=== PATIENT | female | born 1930 | race African-American/Black ===

== ENCOUNTER 2017-07-25 12:42 | Emergency (ER) | payer OTHER, MEDICARE ==
[~2017-07-25] VITALS: Ht 157.5 cm; Wt 72.0 kg
[~2017-07-25 12:42] MED LIST: ADVA250A INH; ALBU1AER INH; COLY4000S PO; GLUCTAB PO; HYDR-2768 PO; HYDR-3533 PO; LEVE250 PO; MAGN1SOL2 PO; MONT10TA2 PO; NIFE30TA2 PO; SYNT88TA PO
[2017-07-25] MEDS ORDERED: IOHEXOL 350 MG/ML 10 ML VIAL (for RAD DIAG) IVCONTRAST ONE (12:43)
[2017-07-25 12:49] VITALS: BP 153/70; PULSE 97; RESP 18; TEMP 98.7; O2SAT 98
[2017-07-25] MEDS ORDERED: SODIUM CHLORIDE 0.9% FLUSH 10 ML FLUSH IVF PRN (13:00)
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
[2017-07-25] MEDS ORDERED: [UNRECOGNIZED DRUG - CODE] PO (13:04)
[2017-07-25] MEDS ORDERED: HYDR25TA5 PO (13:04)
[2017-07-25] MEDS ORDERED: METF500T PO (13:04)
[2017-07-25] MEDS ORDERED: SYNT88TA PO (13:04)
[2017-07-25] MEDS ORDERED: ADVA250A INH (13:04)
[2017-07-25] MEDS ORDERED: NIFE1TAB85 PO (13:04)
[2017-07-25 13:05] VITALS: RESP 16; O2SAT 96
[2017-07-25 13:27] LABS: AUTOMATED NEUTROPHIL # 4.9 TH/MM3 (1.8-7.7); BASOPHIL # 0.1 TH/MM3 (0-0.2); EOSINOPHIL # 0.3 TH/MM3 (0-0.4); EOSINOPHIL % 3.3 % (0.0-4.0); HEMATOCRIT 34.3 % (35.0-46.0); HEMOGLOBIN 11.5 GM/DL (11.6-15.3); LYMPH % 29.6 % (9.0-44.0); LYMPHOCYTE # 2.5 TH/MM3 (1.0-4.8); MEAN CORPUSCULAR HEMOGLOBIN 28.6 PG (27.0-34.0); MEAN CORPUSCULAR HGB CONC 33.6 % (32.0-36.0); MEAN PLATELET VOLUME 7.7 FL (7.0-11.0); MONO % 7.3 % (0.0-8.0); MONOCYTE # 0.6 TH/MM3 (0-0.9); NEUT % 58.8 % (16.0-70.0); PLATELET COUNT 234 TH/MM3 (150-450); RED BLOOD COUNT 4.04 MIL/MM3 (4.00-5.30); RED CELL DISTRIBUTION WIDTH 14.5 % (11.6-17.2); WHITE BLOOD COUNT 8.3 TH/MM3 (4.0-11.0)
[2017-07-25 14:02] LABS: BICARBONATE 28.8 MEQ/L (21.0-32.0); CREATININE 0.83 MG/DL (0.50-1.00)
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
[2017-07-25] MEDS ORDERED: TRAM50TA PO (15:25)
== END 2017-07-25 16:40 | disposition home or self-care (01) ==
LOC: NEPD 12:42
DX: S20.211A Contusion of right front wall of thorax, initial encounter (principal); S60.212A Contusion of left wrist, initial encounter; M25.552 Pain in left hip; J45.909 Unspecified asthma, uncomplicated; I10 Essential (primary) hypertension; E11.9 Type 2 diabetes mellitus without complications; V49.49XA Driver injured in collision with other motor vehicles in traffic accident, initial encounter; Y92.410 Unspecified street and highway as the place of occurrence of the external cause
CPT/HCPCS: 70450; 71260; 72125; 73090; 73552; 74177; 80048; 85025; 99285; Q9967